=== PATIENT | male | born 1970 | race Caucasian/White ===

== ENCOUNTER → 2019-02-14 | Outpatient (CLI) | payer BC | LOC: GMAJ 11:15 | PROVIDERS: ATTEND Family Medicine | DX: I10 Essential (primary) hypertension (principal) ==

== ENCOUNTER 2020-02-26 05:36 | Day surgery (SDC) | payer OTHER ==
[2020-02-26] MEDS ORDERED: LACTATED RINGERS 1,000 ML ONE (06:41)
[2020-02-26] MEDS ORDERED: PROPOFOL 200 MG/20 ML VIAL IV ONE (07:00)
[2020-02-26] MEDS ORDERED: LIDOCAINE 1% 10 ML VIAL INJ ONE (07:00)
[2020-02-26] MEDS ORDERED: LACTATED RINGERS 1,000 ML IVS ONE (09:35)
[2020-02-26] MEDS ORDERED: KETAMINE HCL 100 MG/ML VIAL ONE (12:25)
[2020-02-26] MEDS ORDERED: LACTATED RINGERS 600 ML IVS ONE (12:51)
--- NOTE | 2020-02-26 13:09 | OP ---
DATE OF PROCEDURE: 02/26/20 PREOPERATIVE DIAGNOSIS: 1. First screening colonoscopy. POSTOPERATIVE DIAGNOSIS: 1. Colonic polyp at 15 cm. PROCEDURE: 1. Colonoscopy with polypectomy at 15 cm, approximately 2.6 mm polyp. SURGEON: Brayan Goetz MD COMPLICATIONS: None. ESTIMATED BLOOD LOSS: None. PLAN: Discharge. INDICATION: As stated. PROCEDURE: General anesthesia was induced in the lateral position. Digital rectal exam was normal. The colonoscope was inserted and advanced all the way to the cecum. Some stool on the cecal wall was irrigated and aspirated until we could adequately see all the surfaces. Upon withdrawal, the mucosal surfaces appeared normal. We got to the rectum. There was a single polyp at about 15 cm. This was completely excised with forceps. The remainder of the exam again was normal . The patient tolerated the procedure and was taken to Recovery to be discharged. #[id number] cc: Brayan Person MD [facility]
[2020-02-26 13:53] VITALS: BP 141/83; TEMP 97.6; O2SAT 99
== END 2020-02-26 13:40 | disposition home or self-care (01) ==
LOC: AMB 05:36
PROVIDERS: ATTEND Surgery
DX: Z12.11 Encounter for screening for malignant neoplasm of colon (principal); K63.5 Polyp of colon; I10 Essential (primary) hypertension; Z79.899 Other long term (current) drug therapy
CPT/HCPCS: 00812; 45380; J3490; J7120

== ENCOUNTER → 2020-03-04 | Outpatient (CLI) | payer OTHER | LOC: GMAJ 11:11 | PROVIDERS: ATTEND Family Medicine | DX: I10 Essential (primary) hypertension (principal); Z12.5 Encounter for screening for malignant neoplasm of prostate; Z13.29 Encounter for screening for other suspected endocrine disorder ==